=== PATIENT | male | born 1990 | race Caucasian/White ===

== ENCOUNTER 2018-05-01 17:34 | Emergency (ER) | payer BC ==
[2018-05-01] MEDS ORDERED: IBUPROFEN 600 MG TABLET PO ONE (17:44)
--- NOTE | 2018-05-01 17:51 | Emergency Department Record ---
History of Present Illness - General Chief Complaint: Cough Stated Complaint: RIB PAIN, BAD COUGH Time Seen by Provider: 05/01/18 17:43 Source: Patient Mode of Arrival: Ambulatory Limitations: No limitations - History of Present Illness Initial Comments: 27yo male presents with a cough for several weeks. His cough is productive at times. He has had clear to yellow sputum. His is a smoker with a history in the past of asthma. No fevers. Over the last week he has developed right rib pain with cough as well. No hemoptysis. He is otherwise healthy. MD Complaint: Cough -: Week(s) Severity: Moderate Quality: Aching Consistency: Constant Improves With: Nothing Worsens With: Other Context: Other Associated Symptoms: Cough Treatments Prior to Arrival: None - Related Data Previous Rx's Medication Instructions Recorded Albuterol Sulfate [Proair Hfa] 1 - 2 puff IH .EVERY 4-6 HOURS PRN 05/01/18 #1 inhaler Azithromycin [Zithromax] 250 mg PO DAILY #6 tablet 05/01/18 Prednisone [Prednisone 20Mg] 20 mg PO BID #14 tab 05/01/18 Allergies Allergy/AdvReac Type Severity Reaction Status Date / Time No Known Drug Allergies Allergy Verified 05/01/18 17:46 Review of Systems Constitutional: Denies: Chills, Fever, Malaise, Weakness Eyes: Denies: Eye discharge ENT: Reports: Congestion. Denies: Ear pain, Epistaxis Respiratory: Reports: Cough. Denies: Dyspnea, Hemoptysis, Stridor, Wheezes Cardiovascular: Reports: As per HPI, Chest pain Endocrine: Denies: Fatigue Gastrointestinal: Denies: Abdominal pain, Diarrhea, Nausea, Vomiting Genitourinary: Denies: Dysuria, Frequency, Hematuria Musculoskeletal: Denies: Arthralgia, Back pain, Joint swelling, Myalgia, Neck pain Skin: Denies: Bruising, Change in color, Rash Neurological: Denies: Headache Psychiatric: Denies: Anxiety Hematological/Lymphatic: Denies: Blood Clots, Easy bleeding, Easy bruising, Swollen glands Physical Exam - General General Appearance: Alert, Oriented x3, Cooperative, No acute distress Limitations: No limitations - Head Head exam: Atraumatic, Normal inspection - Eye Eye exam: Normal appearance. negative: Conjunctival injection - ENT ENT exam: Normal exam, Mucous membranes moist Ear exam: Normal external inspection Nasal Exam: Normal inspection Mouth exam: Normal external inspection - Neck Neck exam: Normal inspection - Respiratory Respiratory exam: Rhonchi (few scattered). negative: Normal lung sounds bilaterally, Accessory muscle use, Prolonged expiratory, Wheezes - Cardiovascular Cardiovascular Exam: Regular rate, Normal rhythm, Normal heart sounds - Extremities Extremities exam: Normal inspection - Back Back exam: Denies: CVA tenderness (R), CVA tenderness (L) - Neurological Neurological exam: Alert, Oriented X3 - Psychiatric Psychiatric exam: Normal affect, Normal mood - Skin Skin exam: Dry, Intact, Normal color, Warm Course - Reevaluation(s) Reevaluation #1: 05/01/18 18:51 CXR is negative Will his productive cough he was sent home with Rx for Prednisone and Zithromax. He has over the counter Motrin. Disposition Disposition: Discharge Clinical Impression: Asthmatic bronchitis Disposition: Home, Self-Care Condition: (1) Good Instructions: Acute Bronchitis (ED) Additional Instructions: Call your doctor for a recheck in the next week if not improved Take the prescriptions as directed until gone Return if worse, fever or short of breath Prescriptions: Albuterol Sulfate [Proair Hfa] 1 - 2 puff IH .EVERY 4-6 HOURS PRN #1 inhaler PRN Reason: Difficulty In Breathing Azithromycin [Zithromax] 250 mg PO DAILY #6 tablet Prednisone [Prednisone 20Mg] 20 mg PO BID #14 tab Forms: Patient Portal Access Time of Disposition: 18:51 Quality - Quality Measures Quality Measures: N/A - Blood Pressure Screening Does Patient Have Any of the Following: No Blood Pressure Classification: Hypertensive Reading Systolic Measurement: 133 Diastolic Measurement: 93 Screening for High Blood Pressure: < Pre-Hypertensive BP, F/U Documented > [ [id number]] Pre-Hypertensive Follow-up Interventions: Referral to alternative/primary care provider.
--- NOTE | 2018-05-03 20:54 | RADIOLOGY REPORT ---
EXAM: CHEST 2 VIEWS HISTORY: COUGHING, RIB PAIN. TECHNIQUE: Two views of the chest. COMPARISON: None. FINDINGS: Cardiac silhouette is within normal size limits. No focal pulmonary consolidation. No pleural effusion or pneumothorax. No definite acute osseous findings. IMPRESSION: 1. NO ACUTE LUNG FINDINGS. 2. NO DEFINITE ACUTE OSSEOUS FINDINGS. IF THERE IS CONTINUED HIGH CONCERN FOR A RIB FRACTURE, DEDICATED RIB SERIES RADIOGRAPHS COULD BE OBTAINED. JOB NUMBER: [id number] [facility]
== END 2018-05-01 19:05 | disposition home or self-care (01) ==
LOC: ER 17:34
DX: J45.909 Unspecified asthma, uncomplicated (principal); F17.210 Nicotine dependence, cigarettes, uncomplicated
CPT/HCPCS: 71046; 99283